=== PATIENT | male | born 1985 | race Two or more races ===

== ENCOUNTER 2024-07-29 09:59 | Emergency (ER) | payer OTHER ==
[~2024-07-29] VITALS: Ht 167.6 cm; Wt 104.3 kg
[2024-07-29] MEDS ORDERED: LIDOCAINE 1%-EPI 1:100,000 20 ML VIAL ONE (10:10)
[2024-07-29] MEDS: LIDOCAINE 1%-EPI 1:100,000 20 ML VIAL IJ ONE (10:30)
[2024-07-29] MEDS ORDERED: IBUP-1955 PO (10:47)
[2024-07-29] MEDS ORDERED: HYDR-4209 PO (10:47)
[2024-07-29] MEDS ORDERED: NEOMY/BACITRA/POLYMYXIN B OINT UD PACKET TP ONE (11:00)
[2024-07-29 11:19] VITALS: BP 136/75; TEMP 97.6; O2SAT 100
== END 2024-07-29 11:15 | disposition home or self-care (01) ==
LOC: ER 09:59
DX: S68.121A Partial traumatic metacarpophalangeal amputation of left index finger, initial encounter (principal); W26.8XXA Contact with other sharp object(s), not elsewhere classified, initial encounter; Y93.89 Activity, other specified; Y92.89 Other specified places as the place of occurrence of the external cause; Y99.8 Other external cause status
CPT/HCPCS: 99283; J3490; A4606; A4663